=== PATIENT | female | born 1965 | race Caucasian/White ===

== ENCOUNTER 2016-06-14 10:18 | Emergency (ER) | payer OTHER ==
[~2016-06-14] VITALS: Ht 160 cm; Wt 68.0 kg
--- NOTE | 2016-06-14 10:24 | NUR ---
Presents self to ed due to multiple complaints-- cough and congestio, generalized weakness and fever every nightx 2 weeks. Patient is aao3, appears in no apparent distress. No sob noted, no chest pain. Pt also reported vomitting yesterday. Afebrile at this time. Gowned pt on placed on tele monitor.
--- NOTE | 2016-06-14 10:40 | NUR ---
MD Mccormack at bs
[2016-06-14] MEDS ORDERED: IV SET PRIMARY 1 EA INFUS.SET MC ONE (10:48)
[2016-06-14] MEDS ORDERED: IV NS 0.9% 1,000 ML ONE (10:49)
--- NOTE | 2016-06-14 10:50 | NUR ---
geotechnical intern at bs
[2016-06-14] MEDS ORDERED: IV NS 0.9% 1,000 ML BAG IV ONE (11:00)
[2016-06-14 11:11] LABS: BASOPHILS % (AUTO) 0.5 % (0.0-2.0); EOSINOPHILS # (AUTO) 0.1 /CMM (0.0-0.7); EOSINOPHILS % (AUTO) 3.5 % (0.0-6.0); HEMATOCRIT 29 % (33-45); LYMPHOCYTES # (AUTO) 1.1 /CMM (0.8-4.8); LYMPHOCYTES % (AUTO) 30.3 % (20.0-44.0); MEAN CORPUSCULAR HEMOGLOBIN 22 PG (26.0-33.0); MEAN CORPUSCULAR HGB CONC 32 g/dl (31.0-36.0); MEAN CORPUSCULAR VOLUME 68 fL (82-100); MONOCYTES # (AUTO) 0.3 /CMM (0.1-1.30); MONOCYTES % (AUTO) 8.2 % (2.0-12.0); NEUTROPHILS # (AUTO) 2.1 /CMM (1.8-8.9); NEUTROPHILS % (AUTO) 57.5 % (43.0-81.0); PLATELET COUNT (AUTO) 294 /CMM (150-450); RDW COEFFICIENT OF VARIATION 17.5 (11.5-15.0); RED BLOOD CELL COUNT(AUTO) 4.18 MIL/uL (4.0-5.2); WHITE BLOOD COUNT (AUTO) 3.6 K/uL (4.3-11.0)
[2016-06-14 11:12] LABS: APPEARANCE,URINE Cloudy (CLEAR); BLOOD, URINE Large Ery/uL (NEGATIVE); COLOR,URINE Red (YELLOW); KETONES,URINE Negative (NEGATIVE); LEUKOCYTE ESTERASE ,URINE Negative (NEGATIVE); NITRITE, URINE Negative (NEGATIVE); PH,URINE 8.5 (5.0-8.0); PROTEIN,URINE 100 mg/dl (NEGATIVE); UGLUCOSE Negative (NEGATIVE)
[2016-06-14 11:13] LABS: BILIRUBIN,URINE SMALL (NEGATIVE)
[2016-06-14 11:23] LABS: CALCIUM, SERUM 8.6 mg/dL (8.5-10.1); CARBON DIOXIDE 29 mmol/L (21-32); CHLORIDE 104 mmol/L (98-107); CREATININE 0.7 mg/dL (0.6-1.3); GFR 89 mL/min (>60); GLUCOSE 90 mg/dL (74-106); POTASSIUM 3.8 mmol/L (3.5-5.1); SODIUM SERUM 138 mmol/L (136-145); UREA NITROGEN, BLOOD 10 mg/dL (7-18)
[2016-06-14 11:26] LABS: ADD URINE CULTURE NO; BACTERIA,URINE Rare /HPF (None Seen); RBC,URINE TOO NUMEROUS TO COUN /HPF (0-2); SQUAMOUS EPITHELIAL CELL,UR Few /HPF (None Seen); WBC,URINE 0-2 /HPF (0-3)
[2016-06-14 11:29] LABS: ALANINE AMINOTRANSFERASE 22 U/L (12-78); ALBUMIN 3.5 g/dL (3.4-5.0); ALKALINE PHOSPHATASE 50 U/L (46-116); ASPARTATE AMINOTRANSFERASE 20 U/L (15-37); BILIRUBIN,DIRECT 0.1 mg/dL (0.0-0.2); BILIRUBIN,TOTAL 0.2 mg/dL (0.2-1.0); LIPASE 66 U/L (73-393); TOTAL PROTEIN, SERUM 7.5 g/dL (6.4-8.2)
[2016-06-14 11:31] LABS: TROPONIN I < 0.017 ng/mL (0.00-0.056)
[2016-06-14] MEDS ORDERED: ONDANSETRON HCL/PF 4 MG/2 ML VIAL ONE (11:58)
[2016-06-14] MEDS ORDERED: MAG HYDROX/AL HYDROX/SIMETH 30 ML UDC ONE (11:58)
[2016-06-14] MEDS ORDERED: MAG HYDROX/AL HYDROX/SIMETH 30 ML UDC PO ONE (12:00)
[2016-06-14] MEDS ORDERED: ONDANSETRON HCL/PF 4 MG/2 ML VIAL IV ONE (12:00)
[2016-06-14 12:11] VITALS: BP 132/80
--- NOTE | 2016-06-14 12:12 | NUR ---
Patient discharged to home in stable condition. Written and verbal after care instructions given. Patient verbalizes understanding of instruction.
[2016-06-14 14:07] LABS: EOSINOPHILS % (MANUAL) 3 % (0-4); HYPOCHROMASIA 1+; LYMPHOCYTES % (MANUAL) 19 % (16-48); MONOCYTES % (MANUAL) 1 % (0-11.0); NEUTROPHILS % (MANUAL) 77 (42-76); PLATELET ESTIMATE ADEQUATE
[2016-06-14 14:08] LABS: ANISOCYTOSIS 2+
== END 2016-06-14 12:12 | disposition home or self-care (01) ==
LOC: ER 10:23
DX: D50.9 Iron deficiency anemia, unspecified (principal); N92.0 Excessive and frequent menstruation with regular cycle; K21.9 Gastro-esophageal reflux disease without esophagitis
CPT/HCPCS: 36415; 71010-TC; 80048-TC; 80076-TC; 81000-TC; 83690-TC; 84484-TC; 85025-TC; A4606; J2405; J7030; Z7610

== ENCOUNTER 2017-01-07 12:03 | Inpatient (IN) | payer OTHER ==
[~2017-01-07] VITALS: Ht 160 cm; Wt 94.8 kg
--- NOTE | 2017-01-07 12:15 | NUR ---
PRESENTS TO ER C/O WORSENING ABDOMINAL PAIN X 1 MONTH, N/V. A/OX 4. BREATHING EVEN AND UNLABORED. NO SOB. VITALS STABLE. SAFETY AND COMFORT MEASURES IN PLACE. AWAITING MD ORDERS.
--- NOTE | 2017-01-07 12:25 | NUR ---
NEW IV STARTED ON LAC, 20 G. BLOOD DRAWN AND SENT TO LAB.
[2017-01-07] MEDS ORDERED: ONDANSETRON HCL/PF 4 MG/2 ML VIAL ONE (12:37)
[2017-01-07] MEDS ORDERED: FAMOTIDINE/PF INJ 20 MG/2 ML VIAL IV ONE ×2 (12:37→13:00)
[2017-01-07] MEDS ORDERED: HYDROMORPHONE INJ 2 MG/ML DISP.SYRIN ONE (12:46)
--- NOTE | 2017-01-07 12:50 | NUR ---
PATIENT MEDICATED PER MD ORDERS.
[2017-01-07 12:59] LABS: BASOPHILS % (AUTO) 0.1 % (0.0-2.0); EOSINOPHILS # (AUTO) 0.1 /CMM (0.0-0.7); EOSINOPHILS % (AUTO) 1.7 % (0.0-6.0); HEMATOCRIT 29 % (33-45); HEMOGLOBIN 8.7 g/dL (11.5-14.8); LYMPHOCYTES # (AUTO) 1.8 /CMM (0.8-4.8); LYMPHOCYTES % (AUTO) 34.9 % (20.0-44.0); MEAN CORPUSCULAR HEMOGLOBIN 21 PG (26.0-33.0); MEAN CORPUSCULAR HGB CONC 30 g/dl (31.0-36.0); MEAN CORPUSCULAR VOLUME 70 fL (82-100); MONOCYTES # (AUTO) 0.4 /CMM (0.1-1.30); MONOCYTES % (AUTO) 7.5 % (2.0-12.0); NEUTROPHILS # (AUTO) 2.8 /CMM (1.8-8.9); NEUTROPHILS % (AUTO) 55.8 % (43.0-81.0); PLATELET COUNT (AUTO) 375 /CMM (150-450); RED BLOOD CELL COUNT(AUTO) 4.11 MIL/uL (4.0-5.2); WHITE BLOOD COUNT (AUTO) 5.1 K/uL (4.3-11.0)
[2017-01-07] MEDS ORDERED: HYDROMORPHONE 1 MG/1 ML DISP.SYRIN IV ONE (13:00)
[2017-01-07] MEDS ORDERED: MORPHINE SULFATE INJ 2 MG/ML DISP.SYRIN IV ONE (13:00)
[2017-01-07] MEDS ORDERED: IV NS 0.9% 1,000 ML BAG IV ONE (13:00)
[2017-01-07] MEDS ORDERED: ONDANSETRON HCL/PF 4 MG/2 ML VIAL IVP ONE (13:00)
[2017-01-07 13:02] LABS: CALCIUM, SERUM 8.6 mg/dL (8.5-10.1); CREATININE 0.6 mg/dL (0.6-1.3); POTASSIUM 4.3 mmol/L (3.5-5.1)
[2017-01-07 13:03] LABS: INR 1.03 (0.87-1.13); PROTHROMBIN TIME 10.7 SECS (9.5-12.7)
[2017-01-07 13:07] LABS: ALBUMIN 3.6 g/dL (3.4-5.0); BILIRUBIN,TOTAL 0.3 mg/dL (0.2-1.0); TOTAL PROTEIN, SERUM 7.4 g/dL (6.4-8.2)
--- NOTE | 2017-01-07 13:10 | NUR ---
PATIENT TAKEN TO CT VIA STRETCHER.
[2017-01-07] MEDS ORDERED: IOHEXOL-300 100 ML VIAL IV ONE (13:15)
[2017-01-07] MEDS ORDERED: IV NS 0.9% 250 ML IV ONE (13:15)
[2017-01-07 13:29] LABS: APPEARANCE,URINE CLEAR (CLEAR); BILIRUBIN,URINE NEGATIVE (NEGATIVE); BLOOD, URINE 1+ Ery/uL (NEGATIVE); COLOR,URINE YELLOW (YELLOW); KETONES,URINE NEGATIVE (NEGATIVE); LEUKOCYTE ESTERASE ,URINE NEGATIVE (NEGATIVE); NITRITE, URINE NEGATIVE (NEGATIVE); PH,URINE 5.5 (5.0-8.0); PROTEIN,URINE NEGATIVE (NEGATIVE); UGLUCOSE NEGATIVE (NEGATIVE); UROBILINOGEN,URINE 0.2 EU/dL (0.2)
--- NOTE | 2017-01-07 13:31 | NUR ---
PATIENT RETURNED FROM CT IN STABLE CONDITION.
[2017-01-07 13:42] LABS: BAND % (MANUAL) 1 % (0.0-5.0); LYMPHOCYTES % (MANUAL) 39 % (16-48); NEUTROPHILS % (MANUAL) 50 (42-76)
[2017-01-07 13:43] LABS: EOSINOPHILS % (MANUAL) 4 % (0-4); MONOCYTES % (MANUAL) 6 % (0-11.0)
[2017-01-07 14:14] LABS: BACTERIA,URINE Few /HPF (None Seen); SQUAMOUS EPITHELIAL CELL,UR Moderate /HPF (None Seen); WBC,URINE 0-2 /HPF (0-3)
[2017-01-07] MEDS ORDERED: SUCRALFATE 1 G/10 ML UDC PO ONE ×2 (14:30→17:30)
[2017-01-07] MEDS ORDERED: SUCRALFATE 1 G/10 ML UDC ONE (14:35)
[2017-01-07 16:00] VITALS: BP 125/68
--- NOTE | 2017-01-07 16:16 | NUR ---
REPORT GIVEN TO JAMAL HUTCHINSON FOR ADMISSION.
--- NOTE | 2017-01-07 16:26 | NUR ---
PATIENT TRANSPORTED TO [facility] VIA WHEELCHAIR FOR ADMISSION. RN, JAMAL TO PROVIDE JAYY.
--- NOTE | 2017-01-07 16:58 | NUR ---
RN NOTES PT ADMITTED TO UNIT AT 1630H VIA WHEELCHAIR ACCOMPANIED BY Stephen.Hilda. TRANSPORTER AND DAUGHTER. A/O X 3-4, VERBALLY RESPONSIVE, NO C/O ABDOMINAL PAIN , N & V AT THIS TIME. PT WITH ADMITTING DIAGNOSIS OF ANEMIA AND C/C OF ABDOMINAL PAIN, N&V AND WEAKNESS. PT HAS SIGNIFICANT DX OF BREAST CANCER AND GASTRIC LAP BAND 10 YRS AGO AND BONE OVERGROWTH REMOVAL FR LEFT LEG IN 1979. PT WITH IV ACCESS ON LEFT AC G#20 INTACT AND PATENT. PT HAS INTACT SKIN AND ABLE TO AMBULATE. PLACED BED IN LOW AND LOCKED POSITION WITH UPPER SIDE-RAILS UP X 2. CALL LIGHT AND BEDSIDE TABLE PLACED WITHIN REACH OF PT. ALL SAFETY MEASURES INITIATED. MD ORDER PATIENT ON NPO AT THIS TIME PENDING G.I. CONSULT. WILL CONTINUE TO MONITOR PT .
[2017-01-07 18:21] LABS: IRON, SERUM 20 ug/dl (50-175); TOTAL IRON BINDING CAPACITY 389 ug/dl (250-450)
[2017-01-07 18:40] LABS: FERRITIN 7 ng/mL (8-388)
--- NOTE | 2017-01-07 18:56 | NUR ---
MS RN CLOSING NOTES PT RESTING IN BED AT MODERATE HIGH BACKREST. A/O X 3-4, SAME ABLE TO MAKE NEEDS KNOWN VERBALLY. ON ROOM AIR, BREATHING EVEN AND UNLABORED. IV ACCESS ON LEFT AC G#20 INTACT AND PATENT, HL ONLY. KEPT BED IN LOW AND LOCKED POSITION WITH UPPER SIDE-RAILS UP X 2. CALL LIGHT AND BEDSIDE TABLE WITHIN REACH OF PT. ALL SAFETY MEASURES MAINTAINED. PATIENT ON NPO PENDING G.I. CONSULT. STOOL FOR OCCULT TO BE COLLECTED. ALL NEEDS AND CARE ATTENDED WELL. WILL ENDORSED TO DIGITAL LIBRARIAN NURSE FOR JAYY.
[2017-01-07 20:00] VITALS: BP 126/72
--- NOTE | 2017-01-07 20:00 | NUR ---
MS/RN OPENING NOTES PATIENT IN BED, AWAKE, ALERT X4. ABLE TO VERBALIZE NEEDS, CAN AMBULATE W/ ASSISTANCE, FAMILY WAS AT BED SIDE AND INVOLVE WITH CARE. VERBALIZED DOCTORS TO EVALUATE HER AND INFORM THAT MD WILL BE MAKING ROUNDS AND HAVE ORDERED FOR NPO AT THIS TIME FOR GI CONSULT, ABLE TO TAKE MEDS PER MD ORDER., VERBALIZED SOME HEADACHE AND MD CONTACTED WITH ORDER RECEIVED FOR TYLENOL 650NG PO NEEDED FOR PAIN 1-4/10 LEVEL. WILL CONTINUE TO MONITOR AND PROVIDE CARE. RECEIVED JAYY FROM AM RN. BED IN LOCK POSITION, CALL LIGHTS WITHIN REACH.
[2017-01-07] MEDS: FAMOTIDINE (20 MG) 20 MG TABLET PO SCH (20:05)
[2017-01-07] MEDS ORDERED: ACETAMINOPHEN 325 MG TABLET ONE (21:44)
[2017-01-07] MEDS: ACETAMINOPHEN 325 MG TABLET PO PRN (21:47)
--- NOTE | 2017-01-08 06:32 | NUR ---
MS/RN NOTES PATIENT ABLE TO SLEEP DURING THE NIGHT, PAIN CONTROLLED W/ TYLENOL. CAN AMBULATE WITH ASSISTANCE, ATTEND TO NEEDS AND FAMILY INVOLVED, WILL DISCUSS W/ MD REGARDING PLAN OF CARE PER FAMILY , CALL LIGHTS WITHIN REACH, ON NPO, AWAITING FOR GI CONSULT. BED IN LOCK POSITION, WILL WNDORSE TO AM RN RE JAYY.
--- NOTE | 2017-01-08 07:35 | NUR ---
MS RN OPENING NOTES PATIENT IS RESTING IN BED. IN NO APPARENT DISTRESS. BEDSIDE RAILS ARE UP X2. BED IS LOCKED AND LOWERED. CALL LIGHT IS WITHIN REACH. WILL CONTINUE TO MONITOR.
[2017-01-08 08:00] VITALS: BP 131/69
[2017-01-08] MEDS: FAMOTIDINE (20 MG) 20 MG TABLET PO SCH ×2 (08:39→20:22)
[2017-01-08] MEDS ORDERED: ANESTHESIA TRAY IN PYXIS 1 EA TRAY MC ONE (12:11)
--- NOTE | 2017-01-08 13:00 | NUR ---
PATIENT WAS TAKEN TO EGD PROCEDURE TO THE OR.
--- NOTE | 2017-01-08 14:30 | NUR ---
PATIENT RETURNED FROM EGD PROCEDURE. VITAL SIGNS ARE STABLE. PATIENT RETURNED ON REGULAR DIET TOLERATED.
[2017-01-08 16:00] VITALS: BP 128/75
--- NOTE | 2017-01-08 19:28 | NUR ---
MS RN CLOSING NOTES PATIENT IS IN NO APPARENT DISTRESS. BED IS LOCKED AND LOWERED. BEDSIDE RAILS ARE UP X2. CALL LIGHT IS WITHIN REACH. GAVE REPORT TO AIDAN PILOT BOAT DECKHAND NURSE FOR JAYY.
--- NOTE | 2017-01-08 19:35 | NUR ---
MS/RN OPENING NOTES PT RECEIVED AWAKE, SITTING UP IN BED, FAMILY AT BEDSIDE. ON ROOM AIR, BREATHING EVEN AND UNLABORED. NO APPARENT DISTRESS NOTED. DENIES SOB, PAIN AND N/V AT THIS TIME. IV TO LAC PATENT AND INTACT. BED IN LOW/LOCKED, SIDE RAILS UPX2. CALL LIGHT IN REACH. WILL CONTINUE TO MONITOR
[2017-01-08 20:00] VITALS: BP 112/69
[2017-01-09] VITALS (9 sets, daily range): BP systolic 117–147; BP diastolic 60–80
--- NOTE | 2017-01-09 06:55 | NUR ---
MS/RN CLOSING NOTES PT AWAKE, SITTING AT EDGE OF BED. AT BEDSIDE. A/OX4. ON ROOM AIR, BREATHING EVEN AND UNLABORED. DENIES SOB OR PAIN. NO APPARENT DISTRESS NOTED. IV TO LAC PATENT AND INTACT. CONSENTS SIGNED AND CHECKLIST COMPLETED FOR SURGERY THIS AM. FLAGGED IN CHART. PT REMAINS NPO POST MIDNIGHT. MADE PT COMFORTABLE DURING SHIFT. ALL NEEDS MET. BED IN LOW/LOCKED POSITION WITH CALL LIGHT IN REACH. SIDE RAILS UPX2. WILL ENDORSE TO AM SHIFT JAYY.
[2017-01-09 07:05] LABS: HEMATOCRIT 29 % (33-45); HEMOGLOBIN 9.1 g/dL (11.5-14.8); MEAN CORPUSCULAR HEMOGLOBIN 22 PG (26.0-33.0); MEAN CORPUSCULAR HGB CONC 31 g/dl (31.0-36.0); MEAN CORPUSCULAR VOLUME 70 fL (82-100); PLATELET COUNT (AUTO) 319 /CMM (150-450); RDW COEFFICIENT OF VARIATION 17.5 (11.5-15.0); RED BLOOD CELL COUNT(AUTO) 4.22 MIL/uL (4.0-5.2); WHITE BLOOD COUNT (AUTO) 6.9 K/uL (4.3-11.0)
--- NOTE | 2017-01-09 07:10 | NUR ---
RN NOTES PATIENT AWAKE ALERT AND VERBALLY RESPONSIVE, ABLE TO MAKE NEEDS KNOWN, RESPIRATIONS EVEN AND UNLABORED, DENIES ANY PAIN OR DISCOMFORT AT THIS TIME. LAC IV SITE PATENT AND INTACT, NO REDNESS OR INFILTRATION NOTED. SAFETY MEASURES IN PLACE, CLEAN, DRY AND COMFORTABLE, CALL LIGHT WITHIN EASY REACH WILL CONTINUE TO MONITOR
[2017-01-09 07:25] LABS: CALCIUM, SERUM 8.2 mg/dL (8.5-10.1); CREATININE 0.5 mg/dL (0.6-1.3); POTASSIUM 3.8 mmol/L (3.5-5.1)
--- NOTE | 2017-01-09 07:46 | NUR ---
RN NOTES PATIENT TAKEN TO OR IN STABLE CONDITION WILL CONTINUE TO MONITOR UPON RETURN
[2017-01-09 07:49] LABS: LYMPHOCYTES % (MANUAL) 42 % (16-48); MONOCYTES % (MANUAL) 8 % (0-11.0); NEUTROPHILS % (MANUAL) 50 (42-76)
[2017-01-09] MEDS ORDERED: FENTANYL PF 100MCG/2ML AMPUL ONE (07:52)
[2017-01-09] MEDS ORDERED: MIDAZOLAM HCL 2 MG/2ML VIAL ONE (07:53)
[2017-01-09] MEDS ORDERED: ROCURONIUM BROMIDE 50 MG/5 ML ONE (07:53)
[2017-01-09] MEDS ORDERED: LIDOCAINE 1% INJ 50 ML MDV IJ ONE (07:54)
[2017-01-09] MEDS ORDERED: BUPIVACAINE 0.5 % PF 150 MG/30 ML VIAL ONE (07:54)
[2017-01-09] MEDS: FAMOTIDINE (20 MG) 20 MG TABLET PO SCH (08:05)
--- NOTE | 2017-01-09 10:07 | NUR ---
RN NOTES PATIENT AWAKE ALERT AND VERBALLY RESPONSIVE, ABLE TO MAKE NEEDS KNOWN, RESPIRATIONS EVEN AND UNLABORED, CURRENTLY BACK FROM OR,TO BE ON PAIN MANAGEMENT ORDERED, VSS. LAC IV SITE PATENT AND INTACT, NO REDNESS OR INFILTRATION NOTED. SAFETY MEASURES IN PLACE, CLEAN, DRY AND COMFORTABLE, CALL LIGHT WITHIN EASY REACH WILL CONTINUE TO MONITOR
[2017-01-09] MEDS ORDERED: IV LR 1000 ML 1,000 ML IV PRN (10:30)
[2017-01-09] MEDS ORDERED: HYDROMORPHONE INJ 2 MG/ML DISP.SYRIN IV PRN (11:00)
--- NOTE | 2017-01-09 11:25 | NUR ---
RN NOTES PATIENT AWAKE ALERT AND VERBALLY RESPONSIVE, ABLE TO MAKE NEEDS KNOWN, RESPIRATIONS EVEN AND UNLABORED, DENIES ANY PAIN OR DISCOMFORT AT THIS TIME. LAC IV SITE AND ID BAND REMOVED WITH NO ASE NOTED.PT WITH DISCHARGE ORDERS, ALL DISCHARGE INSTRUCTIONS REVIEWED WITH PT AND SON SELAM WITH NOTED VERBAL UNDERSTANDING SON WANTS TO MAKE APPT FOR PCP ON HIS OWN. ALL BELONGINGS ACCOUNTED FOR, ALL APPROPRIATE PAPERWORK REVIEWED AND SIGNED, NO SKIN ISSUES NOTED. ASSISTED TO LOBBY BY FLANGE TURNER DISCHARGED IN STABLE CONDITION Addendum: 01/09/17 at 1336 by ANGELES WHITE RN RN NOTES INCORRECT ENTRY
[2017-01-09] MEDS ORDERED: HYDROCODONE/APAP 10/325MG 1 EA TABLET PO PRN (12:30)
[2017-01-09] MEDS ORDERED: ONDANSETRON HCL/PF 8 MG in IV D5W 50 ML IVP PRN (12:30)
[2017-01-09] MEDS: ACETAMINOPHEN 325 MG TABLET PO PRN (14:49)
[2017-01-09] MEDS ORDERED: METR500T PO (17:28)
[2017-01-09] MEDS ORDERED: CIPR-262 PO (17:28)
--- NOTE | 2017-01-09 17:30 | NUR ---
RN NOTES PATIENT WITH DC ORDERS BY HOSPITALIST PT TOLERATING MEALS WELL, ABLE TO VOID FREELY, AMBULATING AT THIS TIME. NO SKIN ISSUES NOTED, WILL ASSIST IN DC PROCESS, IV REMOVED WITH NO ASE NOTED
--- NOTE | 2017-01-09 18:30 | NUR ---
RN NOTES PATIENT AWAKE ALERT AND VERBALLY RESPONSIVE, ABLE TO MAKE NEEDS KNOWN, RESPIRATIONS EVEN AND UNLABORED, DENIES ANY PAIN OR DISCOMFORT AT THIS TIME. LAC IV SITE AND ID BAND REMOVED WITH NO ASE NOTED.PATIENT WITH DISCHARGE ORDERS, ALL PRESCRIPTIONS PROVIDED TO PT AND REVIEWED WITH PT AND WITH VERBAL UNDERSTANDING NOTED. ALL BELONGINGS ACCOUNTED FOR, ALL APPROPRIATE PAPER WORK SIGNED AND EXIT CARE REVIEWED WITH PT AND WITH VERBAL UNDERSTANDING NOTED. ASSISTED TO LOBBY BY RETAIL BANKER, DISCHARGED IN STABLE CONDITION
[2017-01-10 12:08] LABS: *HGBFR CHEMOGLOBIN SOLUBILITY Negative (Negative); *HGBFRC HEMOGLOBIN A 98.3 % (94.0-98.0); *HGBFRC HEMOGLOBIN A2 1.7 % (0.7-3.1)
== END 2017-01-09 18:30 | disposition home or self-care (01) | DRG 263 ==
LOC: ER 12:05 → MED 15:55
PROVIDERS: ADMIT Nurse Practitioner Acute Care; ATTEND Nurse Practitioner Acute Care
PROC: 0DB78ZX Excision of Stomach, Pylorus, Via Natural or Artificial Opening Endoscopic, Diagnostic (ICD-10-PCS; principal; 2017-01-08 13:38)
PROC: 0FT44ZZ Resection of Gallbladder, Percutaneous Endoscopic Approach (ICD-10-PCS; 2017-01-09)
DX: K80.10 Calculus of gallbladder with chronic cholecystitis without obstruction (principal); K22.6 Gastro-esophageal laceration-hemorrhage syndrome; C50.911 Malignant neoplasm of unspecified site of right female breast; K21.0 Gastro-esophageal reflux disease with esophagitis; D50.9 Iron deficiency anemia, unspecified; E66.9 Obesity, unspecified; Z98.84 Bariatric surgery status; Z68.37 Body mass index [BMI] 37.0-37.9, adult; K92.2 Gastrointestinal hemorrhage, unspecified
CPT/HCPCS: 36415; 71010-TC; 80048-TC; 80076-TC; 81000-TC; 82728-TC; 83021; 83540-TC; 83690-TC; 83921; 84703-TC; 85025-TC; 85045-TC; 85660; 85730-TC; 87081-TC; 88304-TC; 88305-TC; 88313-TC; 88342; A4606; J1170; J2250; J2405; J3010; J3490; J7030; J7050; J7060; J7120; Q9967; Z7610

== ENCOUNTER 2018-04-18 15:10 | Emergency (ER) | payer OTHER ==
[~2018-04-18] VITALS: Ht 172.7 cm; Wt 100.7 kg
[~2018-04-18 15:10] MED LIST: CIPR-262 PO; METR500T PO
--- NOTE | 2018-04-18 15:28 | NUR ---
PT BIB SELF C/O Epigastric pain and fever since yesterday, PT IS AAOX4, NOT IN RESPIRATORY DISTRESS, V/S STABLE, KEPT RESTED AND COMFORTABLE. WILL CONTINUE TO MONITOR.
--- NOTE | 2018-04-18 15:29 | NUR ---
MS. GAYTAN AMBULATORY CARE COORDINATOR AT BEDSIDE FOR EVAL.
[2018-04-18] MEDS ORDERED: ONDANSETRON HCL/PF 4 MG/2 ML VIAL ONE (15:35)
[2018-04-18] MEDS ORDERED: MORPHINE SULFATE INJ 4 MG/ML DISP.SYRIN ONE (15:36)
--- NOTE | 2018-04-18 15:50 | NUR ---
PT IV LINE ESTABLISHED, LABS DRAWNED, URINE SPECIMEN COLLECTED AND SENT TO LAB.
[2018-04-18 15:52] LABS: BASOPHILS % (AUTO) 0.5 % (0.0-2.0); EOSINOPHILS % (AUTO) 3.4 % (0.0-6.0); HEMATOCRIT 30 % (33-45); HEMOGLOBIN 9.4 g/dL (11.5-14.8); LYMPHOCYTES # (AUTO) 2.2 /CMM (0.8-4.8); MEAN CORPUSCULAR HGB CONC 31 g/dl (31.0-36.0); MEAN CORPUSCULAR VOLUME 77 fL (82-100); MONOCYTES # (AUTO) 0.6 /CMM (0.1-1.30); MONOCYTES % (AUTO) 8.6 % (2.0-12.0); NEUTROPHILS # (AUTO) 3.7 /CMM (1.8-8.9); NEUTROPHILS % (AUTO) 54.5 % (43.0-81.0); PLATELET COUNT (AUTO) 365 /CMM (150-450); RED BLOOD CELL COUNT(AUTO) 3.89 MIL/uL (4.0-5.2); WHITE BLOOD COUNT (AUTO) 6.8 K/uL (4.3-11.0)
[2018-04-18 15:54] LABS: APPEARANCE,URINE Clear (CLEAR); BILIRUBIN,URINE Negative (NEGATIVE); BLOOD, URINE Trace-intact Ery/uL (NEGATIVE); COLOR,URINE Yellow (YELLOW); KETONES,URINE Negative (NEGATIVE); LEUKOCYTE ESTERASE ,URINE Negative (NEGATIVE); NITRITE, URINE Negative (NEGATIVE); PH,URINE 5.5 (5.0-8.0); PROTEIN,URINE Negative (NEGATIVE); UGLUCOSE Negative (NEGATIVE); UROBILINOGEN,URINE 0.2 EU/dL (0.2)
--- NOTE | 2018-04-18 15:59 | NUR ---
PHARMACEUTICAL LABORATORY TECHNICIAN AT BEDSIDE FOR XRAY.
[2018-04-18] MEDS ORDERED: ONDANSETRON HCL/PF 4 MG/2 ML VIAL IVP ONE (16:00)
[2018-04-18] MEDS ORDERED: IV NS 0.9% 1,000 ML BAG IV ONE (16:00)
[2018-04-18] MEDS ORDERED: PIPERACILLIN /TAZOBACTAM 3.375 G in IV D5W 50 ML IV ONE (16:00)
[2018-04-18] MEDS ORDERED: MORPHINE SULFATE INJ 2 MG/ML DISP.SYRIN IV ONE (16:00)
[2018-04-18 16:01] LABS: CALCIUM, SERUM 7.8 mg/dL (8.5-10.1); CREATININE 0.7 mg/dL (0.6-1.3); POTASSIUM 3.6 mmol/L (3.5-5.1)
[2018-04-18 16:07] LABS: ALBUMIN 2.9 g/dL (3.4-5.0); TOTAL PROTEIN, SERUM 6.6 g/dL (6.4-8.2)
[2018-04-18] MEDS ORDERED: CT SWABBABLE VALVE TRANS SET 1 EA INFUS.SET MC ONE (16:12)
[2018-04-18] MEDS ORDERED: IOHEXOL-300 100 ML VIAL IV ONE (16:12)
[2018-04-18] MEDS ORDERED: IV NS 0.9% 250 ML IV ONE (16:12)
[2018-04-18 16:17] LABS: BACTERIA,URINE None seen /HPF (None Seen); RBC,URINE 0-2 /HPF (0-2); SQUAMOUS EPITHELIAL CELL,UR Few /HPF (None Seen); WBC,URINE 0-2 /HPF (0-3)
--- NOTE | 2018-04-18 16:36 | NUR ---
PT IS BACK FROM THE CT SCAN.
[2018-04-18 17:34] VITALS: BP 122/68
--- NOTE | 2018-04-18 17:34 | NUR ---
IV removed. Catheter intact and site benign. Pressure and 4x4 applied to site. No bleeding noted. Patient discharged to home in stable condition. Written and verbal after care instructions given. Patient verbalizes understanding of instruction.
== END 2018-04-18 17:35 | disposition home or self-care (01) ==
LOC: ER 15:12
DX: R10.84 Generalized abdominal pain (principal); D50.9 Iron deficiency anemia, unspecified; Z85.3 Personal history of malignant neoplasm of breast; Z90.49 Acquired absence of other specified parts of digestive tract; Z98.890 Other specified postprocedural states
CPT/HCPCS: 36415; 71045; 74177; 80048; 80076; 81001; 83605; 83690; 85025; 85730; 87040 ×2; 96365; 96375; 99284; A4606; J2270; J2405; J2543; J7030; J7050; J7060; Q9967; 81000-TC

== ENCOUNTER 2019-04-23 20:33 | Emergency (ER) | payer MEDICAID, OTHER ==
[~2019-04-23] VITALS: Ht 165.1 cm; Wt 104.3 kg
[2019-04-23 20:33] VITALS: BP 159/97
--- NOTE | 2019-04-23 20:40 | NUR ---
PT CAME INTO THE ED C/O COUGH X10 DAYS, FEVER 3 DAYS, UNABLE TO SLEEP X3 DAYS. 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 PT ENDORSES PAIN ON THE CHEST AND L SIDED ABDOMEN WHEN COUGHING. PT AAOX4, RR EVEN AND UNLABORED ON RA W/ NAD NOTED. PT CONNECTED TO THE MONITOR AND POX
[2019-04-23] MEDS ORDERED: HYDROCODONE BIT/HOMATROPINE 5 ML UDC ONE (21:09)
[2019-04-23] MEDS ORDERED: ALBUTEROL FS 2.5 MG/3 ML VIAL.NEB ONE (21:17)
[2019-04-23] MEDS ORDERED: IPRATROPIUM NEB FS 0.5 MG/2.5 ML AMPUL.NEB ONE (21:17)
--- NOTE | 2019-04-23 21:23 | NUR ---
RT AT BEDSIDE FOR BREATHING TX
[2019-04-23] MEDS ORDERED: HYDROCODONE BIT/HOMATROPINE 5 ML UDC PO ONE (21:30)
[2019-04-23] MEDS ORDERED: ALBUTEROL FS 2.5 MG/3 ML VIAL.NEB NEB ONE (21:30)
[2019-04-23] MEDS ORDERED: IPRATROPIUM NEB FS 0.5 MG/2.5 ML AMPUL.NEB NEB ONE (21:30)
--- NOTE | 2019-04-23 23:07 | NUR ---
Patient discharged to home in stable condition. Written and verbal after care instructions given. Patient verbalizes understanding of instruction.
== END 2019-04-23 23:08 | disposition home or self-care (01) ==
LOC: ER 20:34
DX: J40 Bronchitis, not specified as acute or chronic (principal); D64.9 Anemia, unspecified; Z98.890 Other specified postprocedural states; Z85.3 Personal history of malignant neoplasm of breast; Z79.899 Other long term (current) drug therapy
CPT/HCPCS: 71045-TC

== ENCOUNTER 2019-12-13 20:26 | Emergency (ER) | payer MEDICAID ==
[~2019-12-13] VITALS: Ht 167.6 cm; Wt 104.3 kg
--- NOTE | 2019-12-13 20:50 | NUR ---
PATIENT CAME TO ER BED 6 C/O HEADACHE AND FEVER FOR THE PAST 5 DAYS. PATIENT STATES THAT SHE LAST TOOK TYLENOL IN THE MORNING @ AROUND 1000. PATIENT IS AAOX4. NO SOB .BREATHING EVENLY AND UNLABORED ON ROOM AIR. CONNECTED TO MONITOR.
--- NOTE | 2019-12-13 20:53 | NUR ---
URINE IS COLLECTED AND SENT TO THE LAB.
[2019-12-13] MEDS ORDERED: KETOROLAC TROMETHAMINE INJ 30 MG/ML VIAL ONE (20:54)
[2019-12-13] MEDS ORDERED: ACETAMINOPHEN ES 500 MG TABLET ONE (20:54)
[2019-12-13] MEDS ORDERED: ACETAMINOPHEN 325 MG TABLET PO ONE (21:00)
[2019-12-13] MEDS ORDERED: KETOROLAC TROMETHAMINE INJ 30 MG/ML VIAL IV ONE (21:00)
[2019-12-13 21:10] LABS: APPEARANCE,URINE CLEAR (CLEAR); BILIRUBIN,URINE NEGATIVE (NEGATIVE); BLOOD, URINE SMALL Ery/uL (NEGATIVE); COLOR,URINE YELLOW (YELLOW); KETONES,URINE NEGATIVE (NEGATIVE); LEUKOCYTE ESTERASE ,URINE NEGATIVE (NEGATIVE); NITRITE, URINE NEGATIVE (NEGATIVE); PROTEIN,URINE NEGATIVE (NEGATIVE); UGLUCOSE NEGATIVE (NEGATIVE); UROBILINOGEN,URINE 0.2 EU/dL (0.2)
[2019-12-13 21:11] LABS: BASOPHILS % (AUTO) 0.3 % (0.0-2.0); EOSINOPHILS % (AUTO) 0.3 % (0.0-6.0); HEMATOCRIT 37 % (33-45); HEMOGLOBIN 12.1 g/dL (11.5-14.8); LYMPHOCYTES # (AUTO) 0.8 /CMM (0.8-4.8); LYMPHOCYTES % (AUTO) 32.8 % (20.0-44.0); MEAN CORPUSCULAR HGB CONC 32 g/dl (31.0-36.0); MEAN CORPUSCULAR VOLUME 84 fL (82-100); MONOCYTES # (AUTO) 0.2 /CMM (0.1-1.30); MONOCYTES % (AUTO) 6.2 % (2.0-12.0); NEUTROPHILS # (AUTO) 1.5 /CMM (1.8-8.9); NEUTROPHILS % (AUTO) 60.4 % (43.0-81.0); PLATELET COUNT (AUTO) 169 /CMM (150-450); RED BLOOD CELL COUNT(AUTO) 4.42 MIL/uL (4.0-5.2); WHITE BLOOD COUNT (AUTO) 2.6 K/uL (4.3-11.0)
[2019-12-13 21:19] LABS: CREATININE 0.7 mg/dL (0.6-1.3)
[2019-12-13 21:25] LABS: ALBUMIN 3.2 g/dL (3.4-5.0); BILIRUBIN,TOTAL 0.2 mg/dL (0.2-1.0); TOTAL PROTEIN, SERUM 7.4 g/dL (6.4-8.2)
[2019-12-13 21:28] LABS: LYMPHOCYTES % (MANUAL) 33 % (16-48); MONOCYTES % (MANUAL) 4 % (0-11.0); NEUTROPHILS % (MANUAL) 63 (42-76)
--- NOTE | 2019-12-13 22:12 | NUR ---
IV removed. Catheter intact and site benign. Pressure and 4x4 applied to site. No bleeding noted.
--- NOTE | 2019-12-13 22:12 | NUR ---
Patient discharged to home in stable condition. Written and verbal after care instructions given. Patient verbalizes understanding of instruction.
[2019-12-13 22:13] VITALS: BP 133/76
== END 2019-12-13 22:13 | disposition home or self-care (01) ==
LOC: ER 20:28
DX: R50.9 Fever, unspecified (principal); R31.9 Hematuria, unspecified; D72.819 Decreased white blood cell count, unspecified; K21.9 Gastro-esophageal reflux disease without esophagitis; Z85.3 Personal history of malignant neoplasm of breast; Z90.49 Acquired absence of other specified parts of digestive tract; Z98.890 Other specified postprocedural states; Z79.899 Other long term (current) drug therapy
CPT/HCPCS: 36415; 71045; 80048; 80076; 81001; 83690; 85007; 85025; 96374; 99284; J1885; 81000-TC

== ENCOUNTER 2019-12-18 13:40 | Emergency (ER) | payer MEDICAID ==
[~2019-12-18] VITALS: Ht 160 cm; Wt 104.3 kg
--- NOTE | 2019-12-18 13:50 | NUR ---
BIB SON W C/O GENERALIZED WEAKNESS, LOSS OF TASTE, RACHEL ACHES AND APPETITE x 1WEEK, ALSO C/O R SIDED ABDOMINAL PAIN AND NAUSEA. TO ER BED 7, HOOKED TO MONITOR, CHANGE DTO HOSP GOWN, WARM BLANKET PROVIDED, PATIENT AAO x 4, BREATHING EVEN AND UNLABORED. AWAITING MD PRADO.
--- NOTE | 2019-12-18 13:58 | NUR ---
DR MORFIN AT BEDSIDE FOR EVAL
--- NOTE | 2019-12-18 14:20 | NUR ---
MOUNTER SMOKING PIPE AT BEDSIDE
--- NOTE | 2019-12-18 14:25 | NUR ---
ADMISSIONS OFFICER AT BEDSIDE FOR JAMES
[2019-12-18] MEDS ORDERED: ONDANSETRON HCL/PF 4 MG/2 ML VIAL ONE (14:27)
[2019-12-18] MEDS ORDERED: LIDOCAINE VISCOUS 2% UD 15 ML UDC ONE (14:27)
[2019-12-18] MEDS ORDERED: MAG HYDROX/AL HYDROX/SIMETH 30 ML UDC ONE (14:27)
[2019-12-18] MEDS ORDERED: FAMOTIDINE/PF INJ 20 MG/2 ML VIAL IV ONE ×2 (14:28→14:30)
[2019-12-18] MEDS ORDERED: ONDANSETRON HCL/PF 4 MG/2 ML VIAL IVP ONE (14:30)
[2019-12-18] MEDS ORDERED: LIDOCAINE VISCOUS 2% UD 15 ML UDC MM ONE (14:30)
[2019-12-18] MEDS ORDERED: IV NS 0.9% 1,000 ML BAG IV ONE (14:30)
[2019-12-18] MEDS ORDERED: MAG HYDROX/AL HYDROX/SIMETH 30 ML UDC PO ONE (14:30)
--- NOTE | 2019-12-18 15:31 | NUR ---
WHEELED BY NEO CARRANZA VIA LAQUITA BACK TO ROOM FROM CT SCAN
--- NOTE | 2019-12-18 15:52 | NUR ---
URINE SAMPLE COLLECTED AND SENT TO LAB
[2019-12-18 16:24] LABS: BASOPHILS % (AUTO) 0.3 % (0.0-2.0); EOSINOPHILS % (AUTO) 0.2 % (0.0-6.0); HEMATOCRIT 37 % (33-45); HEMOGLOBIN 11.9 g/dL (11.5-14.8); LYMPHOCYTES # (AUTO) 1.1 /CMM (0.8-4.8); MEAN CORPUSCULAR HGB CONC 33 g/dl (31.0-36.0); MEAN CORPUSCULAR VOLUME 84 fL (82-100); MONOCYTES # (AUTO) 0.2 /CMM (0.1-1.30); MONOCYTES % (AUTO) 8.2 % (2.0-12.0); NEUTROPHILS # (AUTO) 1.4 /CMM (1.8-8.9); NEUTROPHILS % (AUTO) 50.3 % (43.0-81.0); PLATELET COUNT (AUTO) 172 /CMM (150-450); RED BLOOD CELL COUNT(AUTO) 4.37 MIL/uL (4.0-5.2); WHITE BLOOD COUNT (AUTO) 2.8 K/uL (4.3-11.0)
[2019-12-18] MEDS ORDERED: ESCI20TA PO (16:34)
[2019-12-18] MEDS ORDERED: LORA-258 PO (16:34)
[2019-12-18] MEDS ORDERED: AMLO10TA7 PO (16:34)
[2019-12-18] MEDS ORDERED: LEVO50TA8 PO (16:34)
[2019-12-18] MEDS ORDERED: PANT40TA49 PO (16:34)
[2019-12-18 16:40] LABS: CALCIUM, SERUM 8.1 mg/dL (8.5-10.1); CARBON DIOXIDE 23 mmol/L (21-32); CHLORIDE 103 mmol/L (98-107); CREATININE 0.5 mg/dL (0.6-1.3); GLUCOSE 101 mg/dL (74-106); POTASSIUM 3.8 mmol/L (3.5-5.1); SODIUM SERUM 138 mmol/L (136-145); UREA NITROGEN, BLOOD 10 mg/dL (7-18)
[2019-12-18] MEDS ORDERED: CEFTRIAXONE 1GM BAG (ER ONLY) 50 ML IV ONE (16:58)
[2019-12-18] MEDS ORDERED: AZITHROMYCIN 500 MG in IV D5W 250 ML IV ONE (17:00)
[2019-12-18] MEDS ORDERED: CEFTRIAXONE 1 G in IV D5W 50 ML IV ONE (17:00)
[2019-12-18] MEDS ORDERED: TAMO20TA4 PO (17:02)
[2019-12-18 17:41] LABS: ALANINE AMINOTRANSFERASE 50 U/L (12-78); ALBUMIN 2.8 g/dL (3.4-5.0); ALKALINE PHOSPHATASE 62 U/L (46-116); ASPARTATE AMINOTRANSFERASE 48 U/L (15-37); BILIRUBIN,TOTAL 0.3 mg/dL (0.2-1.0); TOTAL PROTEIN, SERUM 7.1 g/dL (6.4-8.2)
[2019-12-18 17:45] LABS: BILIRUBIN,URINE NEGATIVE (NEGATIVE); BLOOD, URINE TRACE-INTA Ery/uL (NEGATIVE); COLOR,URINE YELLOW (YELLOW); LEUKOCYTE ESTERASE ,URINE NEGATIVE (NEGATIVE); NITRITE, URINE NEGATIVE (NEGATIVE); PROTEIN,URINE NEGATIVE (NEGATIVE); UGLUCOSE NEGATIVE (NEGATIVE); UROBILINOGEN,URINE 0.2 EU/dL (0.2)
[2019-12-18 17:53] LABS: BACTERIA,URINE RARE /HPF (None Seen); RBC,URINE 0-2 /HPF (0-2); WBC,URINE 0-2 /HPF (0-3)
--- NOTE | 2019-12-18 17:53 | NUR ---
SPOKED TO BALTA[employer] COPPOLA AGILITY INSTRUCTOR PT WILL BE TRANSFER TO [facility].
[2019-12-18 18:06] LABS: LYMPHOCYTES % (MANUAL) 50 % (16-48); MONOCYTES % (MANUAL) 4 % (0-11.0); NEUTROPHILS % (MANUAL) 46 (42-76)
--- NOTE | 2019-12-18 19:08 | NUR ---
received a covid 19 result from the lab "positive"
[2019-12-18 19:55] VITALS: BP 162/85
--- NOTE | 2019-12-18 20:46 | NUR ---
TRANSFER INFO: PT WILL BE TRANSFERRED TO [facility] PER INSURANCE REQUEST ACCEPTING MD: DR. HERRERA BED ASSIGNMENT 305B NUMBER FOR REPORT: [phone] NURSE FOR REPORT: KATRINA GUARDIAN [facility] ETA [phone]
--- NOTE | 2019-12-18 21:15 | NUR ---
REPORT GIVEN TO EVANGELINA HERNDON FOR [facility]
--- NOTE | 2019-12-19 00:01 | NUR ---
REPORT GIVEN TO EMS. PT STABLE FOR TRANSFER
== END 2019-12-19 01:47 | disposition short-term general hospital (02) ==
LOC: ER 13:50
DX: U07.1 COVID-19 (principal); J12.89 Other viral pneumonia; J91.8 Pleural effusion in other conditions classified elsewhere; R53.1 Weakness; Z90.49 Acquired absence of other specified parts of digestive tract; Z82.49 Family history of ischemic heart disease and other diseases of the circulatory system; R10.10 Upper abdominal pain, unspecified; K44.9 Diaphragmatic hernia without obstruction or gangrene; N85.2 Hypertrophy of uterus; M51.37 Other intervertebral disc degeneration, lumbosacral region; K43.9 Ventral hernia without obstruction or gangrene; K76.0 Fatty (change of) liver, not elsewhere classified; Z85.3 Personal history of malignant neoplasm of breast; R43.9 Unspecified disturbances of smell and taste
CPT/HCPCS: 36415; 71045; 74176; 76705; 80048; 80076; 81001; 83605; 83690; 84484; 85007; 85025; 85730; 87040 ×2; 87086; 87426; 93005; 96361; 96365 ×2; 96375; 99285; C9803; J0456; J0696; J2405; J3490; J7030; 81000-TC; J7060

== ENCOUNTER 2021-07-24 13:22 | Emergency (ER) | payer MEDICAID ==
[~2021-07-24] VITALS: Ht 167.6 cm; Wt 104.3 kg
[~2021-07-24 13:22] MED LIST changes: +AMLO-213 PO; -CIPR-262 PO; +ESCI20TA PO; +LEVO50TA8 PO; +LORA-258 PO; -METR500T PO; +PANT40TA49 PO; +TAMO20TA4 PO
--- NOTE | 2021-07-24 14:10 | NUR ---
BIBS for c/o bilateral lower extremity pain and swelling. Rates pain 5/10. In room air and denies SOB. Respiration regular and unlabored. Will continue to monitor the patient.
[2021-07-24 15:09] LABS: BASOPHILS % (AUTO) 0.4 % (0.0-2.0); EOSINOPHILS % (AUTO) 2.4 % (0.0-6.0); HEMATOCRIT 39 % (33-45); HEMOGLOBIN 12.1 g/dL (11.5-14.8); LYMPHOCYTES # (AUTO) 2.1 K/uL (0.8-4.8); LYMPHOCYTES % (AUTO) 31.4 % (20.0-44.0); MEAN CORPUSCULAR HGB CONC 31 g/dl (31.0-36.0); MEAN CORPUSCULAR VOLUME 80 fL (82-100); MONOCYTES # (AUTO) 0.5 K/uL (0.1-1.30); MONOCYTES % (AUTO) 7.8 % (2.0-12.0); NEUTROPHILS # (AUTO) 3.8 K/uL (1.8-8.9); PLATELET COUNT (AUTO) 278 K/uL (150-450); RED BLOOD CELL COUNT(AUTO) 4.85 MIL/uL (4.0-5.2); WHITE BLOOD COUNT (AUTO) 6.6 K/uL (4.3-11.0)
--- NOTE | 2021-07-24 15:14 | NUR ---
x-ray tech at the bedside
[2021-07-24 15:30] LABS: ALANINE AMINOTRANSFERASE 58 U/L (12-78); ALBUMIN 3.7 g/dL (3.4-5.0); ALKALINE PHOSPHATASE 79 U/L (46-116); ASPARTATE AMINOTRANSFERASE 35 U/L (15-37); BILIRUBIN,TOTAL 0.2 mg/dL (0.2-1.0); CALCIUM, SERUM 8.4 mg/dL (8.5-10.1); CARBON DIOXIDE 22 mmol/L (21-32); CHLORIDE 106 mmol/L (98-107); CREATININE 0.5 mg/dL (0.6-1.3); GLUCOSE 120 mg/dL (74-106); POTASSIUM 3.9 mmol/L (3.5-5.1); SODIUM SERUM 141 mmol/L (136-145); TOTAL PROTEIN, SERUM 8.1 g/dL (6.4-8.2); UREA NITROGEN, BLOOD 19 mg/dL (7-18)
[2021-07-24 16:46] VITALS: BP 154/89
--- NOTE | 2021-07-24 16:46 | NUR ---
Patient discharged to home in stable condition. Written and verbal after care instructions given. Patient verbalizes understanding of instruction.
== END 2021-07-24 16:47 | disposition home or self-care (01) ==
LOC: ER 13:24
DX: R60.0 Localized edema (principal); I10 Essential (primary) hypertension; E11.9 Type 2 diabetes mellitus without complications; E03.9 Hypothyroidism, unspecified; Z87.19 Personal history of other diseases of the digestive system; Z85.3 Personal history of malignant neoplasm of breast; Z79.899 Other long term (current) drug therapy
CPT/HCPCS: 36415; 71045-TC; 80048-TC; 80076-TC; 83880; 84484-TC; 85025-TC; 93970-TC